=== PATIENT | female | born 1960 | race Caucasian/White ===

== ENCOUNTER 2021-01-21 12:05 | Day surgery (SDC) | payer OTHER ==
[~2021-01-21] VITALS: Ht 177.8 cm; Wt 103.5 kg
[~2021-01-21 12:05] MED LIST: ADVIL200 MG NG; ALLEGRA60 MG PO; CYMBALTA60 MG PO; DEXAMETHAS0.5 MG/5 M PO; HYDROXYCHLOROQ200 MG PO; PRILOSEC20 MG PO; SUDAFED30 MG PO; TRANSDERM-SCOP1 EA TD
[2021-01-21] MEDS ORDERED: XYZAL5 MG PO (12:28)
[2021-01-21] MEDS ORDERED: LEVOTHYROXINE13 MCG PO (12:30)
--- NOTE | 2021-01-21 14:02 | NUR ---
01/21/21 1402 Raya Luque 1358- PT ON LL POSITION. EYES OPEN. DROWSY. BREATHING EASY AND UNLABORED. SPO2 >95% ON 2 L O2 VIA NASAL CANULA. PT REPORTS PAIN 10. PT EDUCATED ABOUT PASSING GAS AND PATIENT REPOSITIONS SELF TO SIDE WITH KNEES UP.
--- NOTE | 2021-01-22 15:57 | PATH ---
[facility] [address] [place], [place] [address] Signed SPECIMEN(S): A DESCENDING LEFT COLON POLYP SPECIMEN SOURCE: A. DESCENDING LEFT COLON POLYP CLINICAL HISTORY: Screening colonoscopy. Postop Dx: Polyp x 1, diverticulosis. MICROSCOPIC DESCRIPTION: Histologic sections of all submitted blocks are examined by light microscopy. These findings, together with the gross examination, support the pathologic diagnosis. FINAL PATHOLOGIC DIAGNOSIS: Colon, descending/left, polyp, polypectomy: - Colonic mucosa with no histopathologic abnormality. - Negative for dysplasia or malignancy. COMMENT: Multiple additional deeper levels were examined. NAL:cml:C2NR GROSS DESCRIPTION: The specimen, labeled "TW, descending colon polyp," is received in formalin and consists of one joyner soft tissue fragment that measures 0.1 cm in greatest dimension. The specimen is entirely submitted in cassette (A1). JS (under the direct supervision of a pathologist) The Gross Description was prepared using a voice recognition system. The report was reviewed for accuracy; however, sound-alike word errors, addition and/or deletions may occur. If there is any question about this report, please contact Client Services. PERFORMING LABORATORY: The technical component was performed by [email or web address], [address] [place] [id number] (Stone Polisher: Georgia Renee MD; CLIA# [id number]). [email or web address] [address] [address] (CLIA# [id number]). Diagnostician: Ainsley Contreras MD Pathologist PATIENT NAME: JOAO NOWAK PATHOLOGY DATE OF : 60 REPORT #: [id number] PHYSICIAN: TATIANA PATHOLOGY PCP: DAVIDA MARCOS REPORT IS CONFIDENTIAL AND NOT TO BE RELEASED WITHOUT AUTHORIZATION [address] [place] [address] Signed Electronically Signed 01/22/2021 Copies: ~ PATIENT NAME: JOAO NOWAK PATHOLOGY DATE OF : 60 REPORT #: [id number] PHYSICIAN: TATIANA PATHOLOGY PCP: DAVIDA MARCOS REPORT IS CONFIDENTIAL AND NOT TO BE RELEASED WITHOUT AUTHORIZATION
--- NOTE | 2021-01-23 11:41 | OR ---
[facility] [address] [place], [place] [address] Signed DATE OF OPERATION: 01/21/2021 SURGEON: Talat Carrasco MD PREOPERATIVE DIAGNOSES: 1. History of flat polyp in 2016, right colon (pathology ultimately hyperplastic). 2. History of diverticulosis. POSTOPERATIVE DIAGNOSES: 1. Scattered diverticula. 2. Small probable hyperplastic polyp of left colon (excised). PROCEDURE: Total colonoscopy to cecum with cold morcellation polypectomy x1. ANESTHESIA: Intravenous sedation, fentanyl 150 mcg, Versed 6 mg. INDICATION: This 60-year-old white woman is a patient of Davida Marcos. She underwent colonoscopy by me in 2015 at which time she was found to have a flat polyp of the right colon, this was excised with mucosal lift technique completely. To my surprise, it was found to be hyperplastic, I thought it would be adenomatous. She also was noted to have some diverticulosis. She is admitted at this time to undergo surveillance colonoscopy. She understands the risks of bleeding, infection, and perforation. FINDINGS: The prep was excellent. Complete colonoscopy was undertaken to the cecum without question. The area of prior endoscopic tattoo marking in the right colon was identified. There was no sign of residual or new polyp. She had scattered diverticula throughout the colon. There was a probable hyperplastic polyp of the left colon, it was excised with cold morcellation technique. There were no other findings of concern. DESCRIPTION OF PROCEDURE: The patient was brought to the endoscopy suite and placed in lateral decubitus position, given intravenous sedation to the point of slurred speech and nystagmus. Digital rectal examination was normal. An Olympus video colonoscope was passed in the rectum and manipulated throughout the colon noting several diverticula of the sigmoid and left colon and transverse colon as Electronically Signed By: TALAT CARRASCO MD 01/23/21 1141 PATIENT NAME: JOAO NOWAK OPERATIVE REPORT DATE OF : 60 REPORT #: [id number] PHYSICIAN: TALAT CARRASCO MD PCP: DAVIDA MARCOS REPORT IS CONFIDENTIAL AND NOT TO BE RELEASED WITHOUT AUTHORIZATION [facility] [address] [place], [place] [address] Signed well. Abdominal wall stabilization was required and ultimately this allowed for full intubation of the cecum without question. Ileocecal valve and appendiceal orifice were normal. The scope was withdrawn from that point. Examination throughout undertaken showed no sign of abnormality other than diverticulosis until approximately 50 cm from the anal verge where a very nonsuspicious probable hyperplastic polyp was noted, this was excised with cold morcellation technique. Further withdrawal of scope showed no other findings including on retroflex view. The scope was removed and the patient was taken to the recovery room in good condition. CONCLUDING DIAGNOSIS: Scattered diverticula, probable left-sided hyperplastic polyp excised. PLAN: Recommend a repeat colonoscopy in 10 years sooner if clinically indicated. She will return to the ongoing care of Davida Marcos otherwise. MD JOSE F Bejarano/KETTY /[id number] cc: ODALYS Moreno Copies: DAVIDA MARCOS ~ Electronically Signed By: TALAT CARRASCO MD 01/23/21 1141 PATIENT NAME: JOAO NOWAK OPERATIVE REPORT DATE OF : 60 REPORT #: [id number] PHYSICIAN: TALAT CARRASCO MD PCP: DAVIDA MARCOS REPORT IS CONFIDENTIAL AND NOT TO BE RELEASED WITHOUT AUTHORIZATION
== END 2021-01-21 14:35 | disposition home or self-care (01) ==
LOC: DS 12:05 → OPS 12:05 → DS 13:00 → OPS 14:35
PROVIDERS: ATTEND Surgery
PROC: 0DBE8ZZ Excision of Large Intestine, Via Natural or Artificial Opening Endoscopic (ICD-10-PCS; principal; 2021-01-21 13:00)
DX: K63.5 Polyp of colon (principal); K57.30 Diverticulosis of large intestine without perforation or abscess without bleeding; E03.9 Hypothyroidism, unspecified; E66.01 Morbid (severe) obesity due to excess calories; K21.9 Gastro-esophageal reflux disease without esophagitis; L43.8 Other lichen planus; Z87.19 Personal history of other diseases of the digestive system; Z90.49 Acquired absence of other specified parts of digestive tract; Z98.890 Other specified postprocedural states; Z88.2 Allergy status to sulfonamides; Z68.32 Body mass index [BMI] 32.0-32.9, adult
CPT/HCPCS: 99153; G0500; J2250; J3010; J7121